=== PATIENT | female | born 1950 | race Caucasian/White ===

== ENCOUNTER → 2018-09-18 | Day surgery (SDC) | payer OTHER ==
[~2018-09-18] MED LIST: ATEN50TA PO; IV RINGERS,LACTATED 1000ML 1,000 ML IV SCH; LEVO100T5 PO; LIDOCAINE 1% PF 2 ML VIAL. ONE; LOSA100T14 PO; PROPOFOL 40 ML IV ONE; SIMV20TA3 PO; TRIA1TAB5 PO
[2018-09-18 09:40] VITALS: BP 147/67
--- NOTE | 2018-09-18 11:11 | CONS ---
DATE OF CONSULTATION: GASTROENTEROLOGY CONSULTATION REFERRING PHYSICIAN: Tone Elias M.D. REASON FOR CONSULTATION: Positive Cologuard. HISTORY OF PRESENT ILLNESS: This is a 68-year-old female whose past medical history is significant for back surgery, tonsillectomy, tubal ligation, rotator cuff surgery as well as obesity, hypertension, hypothyroidism and hyperlipidemia, who is just seen for colonoscopy. She has a positive Cologuard test. There has been no melena or hematochezia. No diarrhea or constipation. Family history is unrevealing for colon polyps or colon cancer. She has not undergone previous screening studies. PAST MEDICAL HISTORY: Hypertension, hypothyroidism, hyperlipidemia, status post rotator cuff surgery, back surgery, tonsillectomy and tubal ligation. ALLERGIES: None. FAMILY AND SOCIAL HISTORY: Significant for diabetes in multiple family members. PAST SURGICAL HISTORY: As stated. REVIEW OF SYSTEMS: As per records. PHYSICAL EXAMINATION: GENERAL: Reveals an obese female. VITAL SIGNS: Temperature is 97.5, pulse 88 and respirations 20. HEENT EXAMINATION: Reveals normocephalic and atraumatic head. Pupils and extraocular muscles are not tested. Sclerae anicteric. NECK: Supple. LUNGS: Clear. CARDIOVASCULAR EXAMINATION: Reveals an S1 and S2, without S3, S4 or appreciable murmur. ABDOMEN: Examination reveals soft abdomen. Normal bowel sounds, without appreciable hepatosplenomegaly. EXTREMITIES: Examination reveals no cyanosis, clubbing or edema. IMPRESSION: Positive Cologuard, colonic polyps and/or malignancy certainly in the differential as well as arteriovenous malformation and inflammatory bowel disease. Therefore, we recommended colonoscopy. Risks and benefits of the procedure have been discussed with the patient and she is willing to proceed at this time. EMMA SANTIAGO MD DR: EBEN/franklin JOB#: [id number] / [id number] TONE Stevenson MD
== END | disposition home or self-care (01) ==
LOC: SURG 07:33
PROVIDERS: ATTEND Internal Medicine Gastroenterology
DX: K64.0 First degree hemorrhoids (principal); R19.5 Other fecal abnormalities; I10 Essential (primary) hypertension; E03.9 Hypothyroidism, unspecified; E78.5 Hyperlipidemia, unspecified; Z98.890 Other specified postprocedural states; Z98.51 Tubal ligation status; E66.9 Obesity, unspecified; Z83.3 Family history of diabetes mellitus
CPT/HCPCS: 45378; J2704